=== PATIENT | male | born 1970 | race Caucasian/White ===

== ENCOUNTER 2024-03-19 18:41 | Inpatient (IN) ==
[2024-03-19] MEDS: Labetalol IV 200 MG in NS 0.9% 250 ml 160 ML IV SCH (19:36)
[2024-03-19 19:41] LABS: Hematocrit 47.5 % (38-53); Hemoglobin 16.8 g/dL (13.2-16.3); Mean Corpuscular Hemoglobin 33.7 pg (27-33); Mean Corpuscular Hgb Conc 35.3 g/dL (31-36); Mean Corpuscular Volume 95.4 fL (80-97); Mean Platelet Volume 8.1 fL (7.5-11.2); Platelet Count 253 10^3/uL (150-450); Red Blood Count 4.98 10^6/uL (4.06-5.63); Red Cell Distribution Width 13.6 % (12-17); White Blood Count 9.9 10^3/uL (3.6-10.2)
[2024-03-19 20:06] LABS: High Sens Troponin Baseline 60 pg/mL (<20)
[2024-03-19 20:53] LABS: Blood Urea Nitrogen 6 mg/dL (6-24); CO2 Carbon Dioxide 24 mmol/L (22-32); Calcium 7.6 mg/dL (8.6-10.3); Chloride 102 mmol/L (101-111); Creatinine, Serum 0.84 mg/dL (0.67-1.17); Glucose 98 mg/dL (70-100); Sodium 135 mmol/L (135-145); eGFR CKD-EPI 103.6 (>60)
[2024-03-19 20:59] LABS: Anion Gap 9 mmol/L (2-16)
[2024-03-19 21:08] LABS: High Sensitivity Troponin 1 Hr 73 pg/mL (<20)
[2024-03-19] MEDS: Thiamine 100 MG/ML 2 ml VIAL (200 mg) IM ONE (23:19)
[2024-03-19] MEDS: Multivitamins/Minerals TAB PO SCH (23:22)
[2024-03-19] MEDS ORDERED: nitroGLYCERIN DRIP 25,000 MCG/250 ML BTL IV SCH (23:45)
[2024-03-20] MEDS: Enoxaparin 40 MG/0.4 ML SYR SUBCUT SCH (02:14)
[2024-03-20 04:49] LABS: ABS Basophils 0.1 10^3/uL (0.0-0.1); ABS Eosinophils 0.1 10^3/uL (0.0-0.5); ABS Lymphocytes 2.1 10^3/uL (1.0-4.8); ABS Monocytes 0.8 10^3/uL (0.0-1.1); ABS Neutrophils 4.9 10^3/uL (1.5-7.6); ABS Nucleated RBC 0.02 10^3/ul; Eosinophil % 1.4 %; Hematocrit 43.9 % (38-53); Hemoglobin 15.5 g/dL (13.2-16.3); Lymphocyte % 26.6 %; Mean Corpuscular Hemoglobin 33.9 pg (27-33); Mean Corpuscular Hgb Conc 35.4 g/dL (31-36); Mean Corpuscular Volume 95.6 fL (80-97); Mean Platelet Volume 7.9 fL (7.5-11.2); Nucleated Red Blood Cells % 0.2 %/100WBC (0.0-0.8); Platelet Count 251 10^3/uL (150-450); Red Blood Count 4.59 10^6/uL (4.06-5.63); Red Cell Distribution Width 13.3 % (12-17)
[2024-03-20 05:13] LABS: Calcium 8.8 mg/dL (8.6-10.3); Creatinine, Serum 0.94 mg/dL (0.67-1.17); Magnesium 2.2 mg/dL (1.9-2.7); Phosphorus 4.7 mg/dL (2.5-5.0); Potassium 4.2 mmol/L (3.5-5.0); eGFR CKD-EPI 96.3 (>60)
[2024-03-20] MEDS: nitroGLYCERIN DRIP 25,000 MCG/250 ML BTL IV SCH (07:06)
[2024-03-20] MEDS: Sulfur Hexaflouride MICROSPHR 25 MG VIAL IV ONE (09:53)
[2024-03-20 14:58] LABS: HDL Cholesterol 42.3 mg/dL
[2024-03-21 04:39] LABS: ABS Basophils 0.1 10^3/uL (0.0-0.1); ABS Eosinophils 0.2 10^3/uL (0.0-0.5); ABS Lymphocytes 1.8 10^3/uL (1.0-4.8); ABS Monocytes 0.7 10^3/uL (0.0-1.1); ABS Neutrophils 4.8 10^3/uL (1.5-7.6); Eosinophil % 2.1 %; Hematocrit 46.6 % (38-53); Lymphocyte % 24.1 %; Mean Corpuscular Hgb Conc 34.2 g/dL (31-36); Mean Corpuscular Volume 96.3 fL (80-97); Mean Platelet Volume 7.9 fL (7.5-11.2); Platelet Count 240 10^3/uL (150-450); Red Blood Count 4.84 10^6/uL (4.06-5.63); Red Cell Distribution Width 13.3 % (12-17); White Blood Count 7.7 10^3/uL (3.6-10.2)
[2024-03-21 05:37] LABS: Calcium 8.9 mg/dL (8.6-10.3); Creatinine, Serum 0.86 mg/dL (0.67-1.17); Magnesium 2.3 mg/dL (1.9-2.7); Phosphorus 4.8 mg/dL (2.5-5.0); Potassium 4.2 mmol/L (3.5-5.0); eGFR CKD-EPI 102.9 (>60)
[2024-03-21] MEDS ORDERED: Aminophylline 25 MG/ML VIAL ONE (11:48)
[2024-03-21] MEDS ORDERED: Regadenoson 0.4 MG/5 ML SYRINGE ONE (11:48)
[2024-03-21] MEDS ORDERED: LORazepam 2 mg VIAL 1 ml ONE (11:51)
[2024-03-21] MEDS: hydrALAZINE 20 mg/ml 1 ML Vial IV IV SLOW PU PRN (18:59)
[2024-03-21] MEDS: Enoxaparin 40 MG/0.4 ML SYR SUBCUT SCH (20:47)
[2024-03-22 06:19] LABS: ABS Eosinophils 0.1 10^3/uL (0.0-0.5); ABS Lymphocytes 1.3 10^3/uL (1.0-4.8); ABS Monocytes 0.8 10^3/uL (0.0-1.1); ABS Neutrophils 4.3 10^3/uL (1.5-7.6); ABS Nucleated RBC 0.01 10^3/ul; Eosinophil % 1.9 %; Hematocrit 48.5 % (38-53); Lymphocyte % 20.1 %; Mean Corpuscular Hemoglobin 33.7 pg (27-33); Mean Corpuscular Hgb Conc 35.2 g/dL (31-36); Mean Platelet Volume 8.2 fL (7.5-11.2); Nucleated Red Blood Cells % 0.1 %/100WBC (0.0-0.8); Platelet Count 240 10^3/uL (150-450); Red Blood Count 5.05 10^6/uL (4.06-5.63); Red Cell Distribution Width 13.4 % (12-17); White Blood Count 6.6 10^3/uL (3.6-10.2)
[2024-03-22 06:56] LABS: Calcium 9.1 mg/dL (8.6-10.3); Creatinine, Serum 0.84 mg/dL (0.67-1.17); Phosphorus 4.1 mg/dL (2.5-5.0); Potassium 4.4 mmol/L (3.5-5.0); eGFR CKD-EPI 103.6 (>60)
[2024-03-22] MEDS: Aspirin EC 81 mg TAB.EC (enteric coated) PO SCH (11:53)
[2024-03-22 12:15] VITALS: BP 168/89
== END 2024-03-22 13:00 | disposition home or self-care (01) | DRG 199 ==
LOC: ED 18:41 → EDHOLD 18:41 → OBSVTOIN 20:11 → SUATTDRO 20:11 → ICU 21:36
PROVIDERS: ADMIT Internal Medicine; ATTEND Internal Medicine Critical Care Medicine